=== PATIENT | female | born 1995 | race African-American/Black ===

== ENCOUNTER 2018-06-28 00:54 | Emergency (ER) | payer SELFPAY, OTHER ==
[2018-06-28] MEDS: IBUPROFEN 800 MG TAB PO (02:08)
[2018-06-28] MEDS: DEXAMETHASONE 10 MG/ML 1 ML INJ PO (02:08)
== END 2018-06-28 02:28 | disposition home or self-care (01) ==
LOC: FTE 00:54
DX: J06.9 Acute upper respiratory infection, unspecified (principal); J45.909 Unspecified asthma, uncomplicated
CPT/HCPCS: 99283